=== PATIENT | female | born 1985 | race Caucasian/White ===

== ENCOUNTER 2021-06-08 16:05 | Outpatient (REF) | payer OTHER, MEDICAID, SELFPAY ==
[2021-06-10 10:15] LABS: HIV-1/2 Ag & Ab Screen Negative (Negative)
[2021-06-10 10:34] LABS: Hepatitis C Ab w Rflx HCV PCR Negative (Negative)
[2021-06-10 14:05] LABS: Chlamydia Result Negative (Negative); GC Result Negative (Negative)
== END 2021-06-08 16:06 | disposition home or self-care (01) ==
LOC: NCHCN 16:05
PROVIDERS: PCP Nurse Practitioner Family; Visit Provider Nurse Practitioner Family
DX: Z20.2 Contact with and (suspected) exposure to infections with a predominantly sexual mode of transmission (principal)
CPT/HCPCS: 86803; 87389; 87491; 87591; 87070; 87480; 87510; 87660

== ENCOUNTER 2022-01-06 10:13 | Day surgery (SDC) | payer BC, SELFPAY ==
[2022-01-06] VITALS (10 sets, daily range): BP systolic 101–132; BP diastolic 49–77; PULSE 62–91; RESP 12–20; TEMP 36.1–37; O2SAT 98–100; BMI 27.4
[2022-01-06 10:40] LABS: Bilirubin Negative (Negative); Blood Negative (Negative); Clarity Clear (Clear); Glucose Negative (Negative); Ketones Negative (Negative); Leukocyte Esterase Trace (Negative); Nitrite Negative (Negative); Specific Gravity 1.025 (1.005-1.025); Urobilinogen 0.2 EU/dL (Up TO 0.2)
--- NOTE | 2022-01-06 10:45 | DI.US_ITS ---
Exam(s) US OB TRANSVAGINAL EXAM: US OB TRANSVAGINAL CLINICAL HISTORY: concern for ruptured ectopic . TECHNIQUE: Transabdominal and transvaginal pelvic ultrasound was performed using standard protocol. COMPARISON: No exams were available for comparison FINDINGS: UTERUS: Position: Anteverted. Size: 6.7 long by 5.5 AP by 6.0 transverse cm Endometrium: 0.9 cm. Normal for patient's menstrual status. No intrauterine gestational sac is identi fied. Myometrium: Unremarkable. Cervix: Unremarkable. OVARIES: The left ovary is not definitively seen. What appears to be the right ovary measures 1.6 x 2.5 cm. No soft tissue mass is seen in the right adnexa. There is fluid seen in the right adnexa. IMPRESSION: 1. Normal-appearing uterus with endometrial stripe within normal limits. No evidence of an intrauter ine gestation. 2. The ovaries were not definitively seen. There is fluid seen in the right adnexa. The possibility of an ectopic cannot be excluded. Please correlate with the patient's beta HCG levels. DATA REPOSITORY:
[2022-01-06 10:46] LABS: Bacteria Few HPF (Negative); C & S Indicated? Yes; Casts Negative LPF (Negative); Crystals Negative HPF (Negative); Epithelial Cells Few HPF (Negative); Mucus Negative (Negative); RBC Negative HPF (0-2)
[2022-01-06] MEDS: MORPHine 4 MG/ML SYR 2 MG IVP (11:06)
--- NOTE | 2022-01-06 11:07 | W.ED.GENAD ---
Discharge Plan Disposition Patient Disposition: [facility] INPATIENT Condition: Serious Discharge Details Chief Complaint: Abd Prob Clinical Impression: Ruptured ectopic Primary Care Provider: Jose Sim ED Provider: Lucien Breaux Medical Decision Making 36-year-old female presents with acute onset abdominal pain this morning, endorses abdominal cramping diffuse in nature, denies vaginal bleeding urinary symptoms, found to have a positive test, did not know she was last menstrual period was 5 weeks ago, has a new sexual partner, 1 prior gestation has a 17-year-old child, no chest pain shortness of breath or presyncope no nausea or vomiting. Patient is hemodynamically stable, bedside ultrasound with a positive fast, free fluid in the pelvis, evidence of gestational sac and yolk sac outside of uterus concerning for ruptured ectopic . Stat consultation called to SENIOR [employer] COORDINATOR Dr. Cohen who is now at the bedside, stat pelvic ultrasound confirming ruptured ectopic , Dr. Cohen will be taking patient to the OR, labs including type and screen, coags have been sent, analgesia antiemetics, fluids. HPI General Date/Time Provider Initiated Documentation: 01/06/22 10:26. HPI Narrative: 36-year-old female G2, P1, last menstrual period 5 weeks ago, presents with acute onset abdominal discomfort that began approximately an hour before ED arrival. Denies nausea vomiting diarrhea or urinary symptoms. Has a new sexual partner over the past couple of months, denies history of STIs. Denies chest pain shortness of breath or presyncope General Stated Complaint: Abd Prob ADRIEN: 3 Review of Systems Narrative: Review of Systems Constitutional: negative Eyes: negative ENT: negative Cardiovascular: negative Respiratory: negative Gastrointestinal: Abdominal pain : negative Musculoskeletal: negative Skin: negative Neurologic: negative Psych: negative PFSH All Active Problems (Updated 01/06/22 @ 11:12 by Lucien Breaux MD) Ruptured ectopic (Acute) Social History Smoking risk assessment performed?: No Exam Narrative Exam Narrative: Physical Examination General: alert, awake, cooperative, moderately uncomfortable HEENT: normocephalic, atraumatic; PERRL, EOM intact, conjunctiva normal; no nasal discharge; moist mucous membranes, oral and pharyngeal mucosa normal, tolerating secretions Neck: supple, trachea midline; full ROM Chest: normal to inspection Respiratory: normal respiratory effort, speaking in full sentences, clear to auscultation, no wheezing, rales or rhonchi Cardiac: regular rate, regular rhythm, S1S2 intact, no murmurs rubs or gallops GI: abdomen soft, diffuse abdominal tenderness, non-distended; no palpable mass or hepatosplenomegaly Skin: no lesions, rashes or trauma appreciated; warm well perfused extremities Neuro: AAOx3, normal speech, moving all extremities Psych: Appropriate mood and affect Course Vital Signs Vital signs: Vital Signs Temperature 36.6 C 01/06/22 10:17 Pulse 80 01/06/22 10:17 Respiratory Rate 20 01/06/22 10:17 Blood Pressure 132/77 01/06/22 10:17 Pulse Oximetry 98 01/06/22 10:17 Temperature 36.6 C 01/06/22 10:17 Temperature Source Temporal Artery Scan 01/06/22 10:17 Pulse 80 01/06/22 10:17 Respiratory Rate 20 01/06/22 10:17 Blood Pressure 132/77 01/06/22 10:17 Blood Pressure Position Standing 01/06/22 10:17 Pulse Oximetry 98 01/06/22 10:17 Oxygen Delivery Method Room Air 01/06/22 10:17 Oxygen Flow Rate 0 01/06/22 10:17 Lab/Test Results Lab/Test Results: 01/06/22 10:24 Urine - Reflex from Ua Urine Culture - Pending Laboratory Tests Range/Units 01/06/22 10:24 Urine Color (Yellow) Yellow Urine Clarity (Clear) Clear Urine pH (5-8) 7.0 Ur Specific [place] (1.005-1.025) 1.025 Urine Protein (Negative) mg/dL Negative Urine Ketones (Negative) mg/dL Negative Urine Blood (Negative) Negative Urine Nitrite (Negative) Negative Urine Bilirubin (Negative) Negative Urine Urobilinogen (Up TO 0.2) EU/dL 0.2 Ur Leukocyte Esterase (Negative) Trace H Urine RBC (0-2) HPF Negative Urine WBC (0-5) HPF 5-10 Ur Epithelial Cells (Negative) HPF Few Urine Crystals (Negative) HPF Negative Urine Bacteria (Negative) HPF Few Urine Casts (Negative) LPF Negative Urine Mucus (Negative) Negative Ur Culture Indicated? Yes Urine Glucose (Negative) mg/dL Negative POC- Test(urine) Positive
[2022-01-06] MEDS: Normal Saline 1,000 ML 1000 ML IV (11:08)
--- NOTE | 2022-01-06 11:08 | W.ANESPRE ---
General Info Date of Service Date Performed: 01/06/22 Height: 5 ft 4 in Weight: 72.575 kg Body Mass Index (BMI): 27.4 Surgical Procedure: Operation Date: 01/06/22 11:25 Proposed Procedure Side Surgeon p Etopic Rupture Nathalia Cohen DO Meds Allergies and Home Medications Allergies Allergy/AdvReac Type Severity Reaction Status Date / Time No Known Allergies Allergy Unverified 01/06/22 11:24 Current Visit Medications: Current Medications Generic Name Dose Route Start Last Admin Trade Name Freq PRN Reason Stop Dose Admin Sodium Chloride 1,000 mls @ 1,000 mls/hr 01/06/22 10:50 Saline 1000ml Bag IV 01/06/22 11:49 BOLUS ONE PFSH Prental History History 2 Para 1 Hx # Term Pregnancies Multiple births Hx # Pregnancies Ectopic pregnancies AB induced Hx Number of Living Children 1 AB spontaneous Vital Signs and Lab Results Vital Signs Most Recent Vital Signs in EMR: Most Recent Vital Signs Temp Pulse Resp BP Pulse Ox 36.6 C 80 20 132/77 98 01/06/22 10:17 01/06/22 10:17 01/06/22 10:17 01/06/22 10:17 01/06/22 10:17 Point of Care Results Point of Care Results: POC- Test(urine) Positive 01/06/22 10:30 Lab Results Result Diagrams: 01/06/22 10:50 01/06/22 10:50 Blood Type / Crossmatch: Patient ABO/Rh A Negative 01/06/22 Complete Blood Count: White Blood Count 10.27 10^3/uL (4.4-10.8) 01/06/22 10:50 Red Blood Count 3.90 10^6/uL (3.93-5.22) L 01/06/22 10:50 Hemoglobin 11.6 g/dL (11.2-15.7) 01/06/22 10:50 Hematocrit 33.9 % (36.0-46.0) L 01/06/22 10:50 Platelet Count 275 10^3/uL (130-400) 01/06/22 10:50 Complete Metabolic Panel: Estimated GFR/1.73 m2 Pending 01/06/22 10:50 Liver Function Panel: No Data to Display Coagulation Panel: INR International Normalized Ratio 1.0 (0.9-1.1) 01/06/22 10:50 Prothrombin Time 9.8 sec (9.3-11.0) 01/06/22 10:50 Activated Partial Thromboplast Time 26.0 sec (21.0-27.5) 01/06/22 10:50 Cardiac Panel: No Data to Display Arterial Blood Gas: No Data to Display Venous Blood Gas: No Data to Display Pancreas Panel: No Data to Display Thyroid Panel: No Data to Display Infectious Disease: Coronavirus (COVID-19)(PCR) Pending 01/06/22 11:12 Coronavirus 2019 Source Nasal/Nares 01/06/22 11:12 Blood Cultures: No Data to Display Toxicology Panel: No Data to Display Panel: No Data to Display Anesthesia Assessment and Plan Anesthesia History Personal History: No History of Anesthesia Complications Family History: No Family History of Anesthesia Complications Exercise Tolerance Exercise Tolerance: Metabolic Equivalents>4 Pertinent Negatives Pertinent Negatives: No Symptoms of GERD, No Major Cardiovascular Symptoms or Complaints, No Major Pulmonary Symptoms or Complaints and No History of CVA/TIA Cardiac & Pulmonary Exam Cardiac Exam: Normal S1/S2 Heart Sounds Pulmonary Exam: Clear Bilateral Breath Sounds Implantable Cardiac Device Does patient have a Pacemaker or an ICD?: No Airway Exam Known Difficult Airway: No Mallampati Class: 2 Mouth Opening: Normal (> 3cm) Thyromental Distance: Greater than 3 cm Neck Range of Motion: Full ROM Neck Circumference: Normal Teeth Condition: Normal Dentition and Loose or Chipped (reports some chipped) ASA Classification ASA Score: ASA 2 Emergency Case?: Yes NPO Status NPO Status: Full Stomach Status Status: Confirmed Anesthesia Plan Resuscitation Status: Full Code Anesthesia Technique: General Anesthesia Airway Planned: Endotracheal Tube Monitors Used: Standard Monitors
[2022-01-06] MEDS: Ondansetron 4 MG/2 ML VIAL IVP (11:10)
[2022-01-06 11:11] LABS: Abs Immature Grans 0.04 10^3/uL (0.0-0.06); Absolute Basophil Count 0.05 10^3/uL (0.0-0.2); Absolute Eosinophil Count 0.19 10^3/uL (0.0-0.7); Absolute Lymphocyte Count 2.67 10^3/uL (1.2-3.4); Absolute Monocyte Count 0.68 10^3/uL (0.1-0.8); Absolute Neutrophil Count 6.64 10^3/uL (1.2-6.7); Basophils % 0.5; Eosinophils % 1.9; HCT 33.9 % (36.0-46.0); HGB 11.6 g/dL (11.2-15.7); Immature Grans % 0.4; MCH 29.7 pg (27.0-33.0); MCHC 34.2 % (32.0-36.0); MCV 87 fL (80-95); MPV 9.6 fL (8.0-11.0); Monocytes % 6.6; Neutrophils % 64.6; Platelet Count 275 10^3/uL (130-400); RDW 12.6 % (11.7-14.6); RDW-SD 39.8 fL; WBC 10.27 10^3/uL (4.4-10.8)
[2022-01-06 11:16] LABS: Source Nasal/Nares
--- NOTE | 2022-01-06 11:22 | HPE_ITS ---
Date of service: 01/06/22 Time of Service: : Assessment and Plan Assessment and plan (1) Ruptured ectopic : Status: Acute Assessment and plan: Highly suspicious for ruptured ectopic . Patient was taken emergently to the operating room for operative laparoscopy, removal of ectopic , correction of hemoperitoneum, bilateral salpingectomy. Patient does understand that she may need conversion to an open laparotomy and does also understand the risk, benefits, alternatives of surgery which include infection, bleeding, injury to surrounding organs, risk of anesthesia, risk of thromboembolism, possible risk of . She does not need antibiotic prophylaxis. She will have pneumatic compression stockings for DVT protection. My anticipation would be for discharge home post surgical procedure. All questions were answered. History of Present Illness History of Present Illness Chief Complaint: Acute onset of lower abdominal pain Narrative: Patient is a 36-year-old 2 para 1-0-0-1 who presented to the emergency department today with acute onset of abdominal pain which is colicky in nature. This started approximately 10 AM. She is 6 from her last menstrual period. She is currently sexually active without use of contraception. Her last was 17 years ago. She was convinced of the fact that she was no longer able to achieve . She is on desirous of . Bedside ultrasound performed in the emergency department showed free fluid in the abdomen with no intrauterine gestation. This was confirmed on transvaginal pelvic ultrasound in diagnostic imaging with no intrauterine and a moderate amount of free fluid in the abdomen and pelvis. This is highly suspicious for ruptured ectopic . Patient has no desire to continue her fertility and request permanent sterilization at the time of procedure. We discussed treatment options for which medical therapy would not be indicated due to the pain and free fluid within her abdomen. Surgical exploration were explained to the clarisa ent which would be an operative laparoscopy, removal of ectopic , correction of hemoperitoneum, bilateral salpingectomy, possible oophorectomy, possible laparotomy. Full informed consent was obtained. Review of Systems Narrative: Patient had acute onset of lower abdominal pelvic pain no nausea or vomiting. Constitutional Constitutional: Reports as per HPI Eyes Eyes: Reports system reviewed and no additional complaints, except as documented ENT Ears, Nose, Mouth, and Throat: Reports system reviewed and no additional complaints, except as documented Cardiovascular Cardiovascular: Denies chest pain, Denies irregular heart rhythm and Denies dyspnea Respiratory Respiratory: Reports system reviewed and no additional complaints, except as documented, Denies cough and Denies dyspnea Gastrointestinal Gastrointestinal: Reports abdominal pain, Reports bloating, Denies constipation, Denies diarrhea and Denies nausea Genitourinary Genitourinary: Reports as per HPI, Reports amenorrhea and Denies sexual dysfunction Musculoskeletal Musculoskeletal: Reports system reviewed and no additional complaints, except as documented Neurologic Neurologic: Reports system reviewed and no additional complaints, except as documented PFSH All Active Problems (Updated 01/06/22 @ 11:24 by Nathalia Cohen DO) Asthma (Chronic) Mild in childhood Ruptured ectopic (Acute) Social History (Updated 01/06/22 @ 11:25 by Nathalia Cohen DO) Smoking/Tobacco Use Status: Current every day Tobacco Type: cigarettes Smoking risk assessment performed?: Yes Alcohol Intake: former Drug use: Never Substance use type: does not use Number of Children: 1 Do you feel safe at home: Yes Do you feel safe in your relationship?: Yes Female Reproductive History Menstrual Age of Menarche: 13 Duration of menses: 3-5 days Date of last menstrual period: 11/21/21 control method: none History History 2 Para 1 Hx # Term Pregnancies Multiple births Hx # Pregnancies Ectopic pregnancies AB induced Hx Number of Living Children 1 AB spontaneous Meds Allergies and Home Medications Allergies Allergy/AdvReac Type Severity Reaction Status Date / Time No Known Allergies Allergy Unverified 01/06/22 11:24 Exam Narrative Exam Narrative: Seen and examined, vital signs reviewed which are stable. Moderate pain and discomfort due to pelvic pain. Patient was seen while in diagnostic imaging for ultrasound confirming free fluid within the abdomen, no intrauterine . Const General: cooperative, uncomfortable, acute distress, not ill appearing and does not appear intoxicated Nutritional Appearance: average body habitus [facility] Head: normal to inspection Eyes General: appearance normal, both eyes and all related structures Neck Neck: normal visual inspection, supple and no anterior neck swelling Resp Effort & Inspection: normal respiratory effort, no cough, no grunting and no stridor Auscultation: clear to auscultation bilaterally, no rales, no rhonchi and no wheezes Cardio Rate: regular rate Rhythm: regular rhythm Heart Sounds: S1 normal, S2 normal and no murmurs GI Inspection: normal to inspection and non-distended Palpation: soft, guarding, no masses, not rigid and tender Extrem General: no clubbing, cyanosis or edema Results Imaging Imaging Studies: Transvaginal pelvic ultrasound reviewed while in progress with moderate amount of free fluid in the abdomen and pelvis and no intrauterine gestation noted. Labs Result diagrams: 01/06/22 10:50 01/06/22 10:50 Labs: Laboratory Results - last 24 hr 01/06/22 01/06/22 01/06/22 10:24 10:50 11:12 WBC 10.27 RBC 3.90 L Hgb 11.6 Hct 33.9 L MCV 87 MCH 29.7 MCHC 34.2 RDW 12.6 Plt Count 275 MPV 9.6 Immature Gran % 0.4 Neutrophils % 64.6 Lymphocytes % 26.0 Monocytes % 6.6 Eosinophils % 1.9 Basophils % 0.5 Nucleated RBC % 0.0 Absolute Neutrophils 6.64 Absolute Lymphocytes 2.67 Absolute Monocytes 0.68 Absolute Eosinophils 0.19 Absolute Basophils 0.05 Urine Color Yellow Urine Clarity Clear Urine pH 7.0 Ur Specific [place] 1.025 Urine Protein Negative Urine Ketones Negative Urine Blood Negative Urine Nitrite Negative Urine Bilirubin Negative Urine Urobilinogen 0.2 Ur Leukocyte Esterase Trace H Urine RBC Negative Urine WBC 5-10 Ur Epithelial Cells Few Urine Crystals Negative Urine Bacteria Few Urine Casts Negative Urine Mucus Negative Ur Culture Indicated? Yes Urine Glucose Negative COVID-19 Source Nasal/Nares Last Vital Signs Temp 98.6 F 01/06/22 11:10 Pulse 65 01/06/22 11:10 Resp 17 01/06/22 11:10 BP 105/67 01/06/22 11:10 Pulse Ox 100 01/06/22 11:10
[2022-01-06 11:27] LABS: Prothrombin Time 9.8 sec (9.3-11.0)
--- NOTE | 2022-01-06 11:30 | NUR.NOTE ---
Nursing Note: Patient brought to ED bed and was seen by ED doc immediately who did bedside US. IV placed, labs sent, covid sent, obgyn at bedside to consent patient for procedure. Pt escorted to PACU at approx 1120, patient stable and vitals as charted.Report given to BREAD ROOM HAND. Patient's contact (a co-worker who brought her) is Anthony Sherman [phone].
[2022-01-06 11:45] LABS: AST 8 U/L (15-37); Albumin 3.6 g/dL (3.4-5.0); Alkaline Phosphatase 62 U/L (46-116); Anion Gap 11.3 mmol/L (3-11); BUN 10 mg/dL (7-18); Bilirubin, Total 0.1 mg/dL (0.2-1.0); CO2 20.7 mmol/L (21.0-32.0); CREATININE 0.7 mg/dL (0.55-1.02); Calcium 8.5 mg/dL (8.5-10.1); Chloride 104 mmol/L (98-107); Glucose 102 mg/dL (74-106); Potassium 3.9 mmol/L (3.5-5.1); Sodium 136 mmol/L (136-145); Total Protein 6.8 g/dL (6.4-8.2)
[2022-01-06 11:52] LABS: ALT < 6 U/L (14-59)
[2022-01-06 12:09] LABS: COVID-19 PCR Negative (Negative)
--- NOTE | 2022-01-06 12:15 | FALL_PTH ---
PATIENT: Shelby Carrasco LOC: [facility] U#:[id number] AGE/SX: 36/F ROOM: RE01/06/[address]: Clarice Miller DO : 1985 BED: DIS: 01/06/2022 SPEC #: [id number] RECD: 01/06/22 17:31 STATUS: ALEC REKenny #: [id number] ROSA: 01/06/22 12:[address]: Clarice Miller DEPT: Surgical Specimen RECD BY: Nurys Kenny ENTERED: 01/06/22 17:32 SP TYPE: Fall OTHR DR: Jose Sim Tissues: 1 - FALLOPIAN TUBE (ECTOPIC) 2 - FALLOPIAN TUBE (ECTOPIC) Procedures: GROSS AND MICRO LEVEL 4 GROSS AND MICRO LEVEL 3 Comments: [id number]
[2022-01-06] MEDS: Lactated Ringers 1,000 ML 30 ML IV (12:19)
[2022-01-06] MEDS: HYDROmorphone 2 MG/ML VIAL IVP (13:09)
--- NOTE | 2022-01-06 13:22 | ROE_ITS ---
Date of service: 01/06/22 Time of Service: 13:22 Operative Note Operative Note DATE OF PROCEDURE: 01/06/22 PRE-OP DIAGNOSIS: Suspected ruptured ectopic POST-OP DIAGNOSIS: same (Left ectopic with dilated fallopian tube. Clubbed right fallopian tube) PROCEDURE: Operative laparoscopy with removal of bilateral fallopian tubes for ectopic SURGEON: Nathalia Cohen ASSISTING SURGEON: Eugenio Priest ANESTHESIA TYPE: General LMA/ETT Refer to Anesthesia Record ESTIMATED BLOOD LOSS: 100 PATHOLOGY: other (1. Right fallopian tube with clubbed distal end 2. Left fallopian tube with suspected ectopic) COMPLICATIONS: None Patient was transported to: PACU Patient's condition: stable Indications: Suspected ruptured ectopic Findings: Markedly dilated left fallopian tube with distal bleeding. Clubbed right fallopian tube. Small, 2 cm anterior fundal subserosal fibroid. Moderate hemoperitoneum Procedure Description: Patient is a 36-year-old female 2 para 1 with cute onset of abdominal p ain and unknown status. She was noted to have a positive test in the emergency department and severe lower quadrant and pelvic pain. Pain started approximately 10 AM. She presented to the hospital shortly thereafter. Bedside ultrasound had been performed showing free fluid in the pelvis and no intrauterine gestation. This was confirmed on ultrasound in diagnostic imaging. Laboratory studies have been drawn but pending at that point. Clinically on examination, patient had an acute abdomen that was hemodynamically stable. Risk benefits and alternatives of surgical intervention had been explained to the patient in full informed consent was obtained. Patient's last was 17 years ago and she was under the impression that she would not be able to conceive a . She has no desire for future fertility. She also requested permanent sterilization. Risk benefits and alternatives of this were explained to the patient and full informed consent was obtained. She was taken the operating suite with an IV running where she was placed in the dorsal supine position. Endotracheal intubation was performed for the administration of general anesthesia with ease. At this place he was placed in the modified dorsolithotomy position in yellowfin stirrups and prepped and draped in the usual sterile fashion. Exam under anesthesia revealed a uterus that is midline and mobile and fullness in the left adnexa. Ramsey catheter was inserted for continuous bladder drainage. Pneumatic compression stockings were placed for thromboembolism protection. No antibiotics were warranted. Speculum was inserted into the vaginal vault and a Hulka uterine manipulator was placed for uterine elevation. Ramsey catheter was inserted for continuous bladder drainage. At this point attention was turned to the abdomen where after infiltration with quarter percent Marcaine and infraumbilical skin incision was made. The anterior abdominal wall was elevated and a varies needle inserted directly. CO2 gas was used to a maximum pressure of 15 mmHg to create a pneumoperitoneum without difficulty. Once pneumoperitoneum was created direct insertion of a 12 mm bladeless Optiview sleeve and trocar were placed into the abdomen. There was noted to be a moderate amount of blood within the abdomen and pelvis. A second and third right and left lower quadrant trocar site was placed after infiltration of quarter percent Marcaine and under direct visualization. The uterus was then elevated and both fallopian tubes inspected. Left fallopian tube was markedly dilated at the distal end with blood dripping from the fallopian tube and. This is the area of suspected ectopic. Right fallopian tube, however was also markedly abnormal with a clubbed end and filmy adhesions of the fallopian tube to the left ovarian fossa. Attention was initially turned to the left fallopian tube which was elevated and cautery transected. Similar procedure was carried out on the right fallopian tube with a blunted distal end. During the procedure the dilated fallopian tube was inadvertently incised, and at that point a small amount of hemosiderin laden fluid returned. Upon removal of both fallopian tubes, Endopouch was placed into the 10 mm sleeve and with a 5 mm camera first the right fallopian tube was removed from the abdomen followed by the left fallopian tube. At this point pressure was diminished to 5 mmHg and both pedicles from each fallopian tube were found to be hemostatic. The abdomen was irrigated copious amounts of normal saline to remove the hemoperitoneum. Again pedicle beds were inspected and found to be hemostatic. At this point procedure was terminated. CO2 gas was discontinued pneumoperitoneum released and all instruments removed from the abdomen. Fascial incision was closed using 0 Vicryl suture in a simple interrupted fashion. Skin edges were reapproximated with 4-0 Monocryl suture and Steri-Strips and sterile dressings were placed. Hulka uterine manipulator was removed as was her Ramsey catheter. Patient was returned to the dorsal supine position and awoke from anesthesia with ease. She was taken recovery in stable condition EBL: 100 mL Findings: Suspected left fallopian tube ectopic. Clubbed, abnormal right fallopian tube. 2 cm fundal, subserosal fibroid. Complications: None apparent Pathology: 1. Right fallopian tube 2. Left Fallopian tube with suspected . Fluids: crystalloid per anesthesia
--- NOTE | 2022-01-06 14:18 | W.ANESPOSTOP ---
Postoperative Evaluation Date, Time and Location Date Performed: 01/06/22 Time Performed: 14:18 Patient Location: Day Surgery Unit Vital Signs Most Recent Imported Vital Signs: Most Recent Vital Signs Temp Pulse Resp BP Pulse Ox 36.1 C L 62 16 109/65 99 01/06/22 13:48 01/06/22 13:48 01/06/22 13:48 01/06/22 13:48 01/06/22 13:48 Pain Score Most Recent Pain Score: Most Recent Pain Score Pain Level 6 01/06/22 13:48 Assessment Mental Status: Awake (Alert & Oriented to Patient Baseline) Airway and Respiratory Function: Patent airway with normal (patient baseline) respiratory exam Cardiovascular Function: Hemodynamically Stable Hydration Status: Adequately Hydrated Nausea & Vomiting: No Nausea or Vomiting Pain: Pain is tolerable per patient Peripheral Nerve Block: Patient did not receive a nerve block
[2022-01-06] MEDS: Acetaminophen 500 MG TAB 1000 MG PO (15:00)
== END 2022-01-06 15:17 | disposition home or self-care (01) ==
LOC: ER 11:12 → SUR 11:13
PROVIDERS: Obstetrics & Gynecology; Emergency Provider Emergency Medicine; PCP Internal Medicine; Visit Provider Surgery
PROC: (CPT 58661; principal; 2022-01-06 11:15)
DX: O00.90 Unspecified ectopic pregnancy without intrauterine pregnancy; O00.102 Left tubal pregnancy without intrauterine pregnancy; O08.1 Delayed or excessive hemorrhage following ectopic and molar pregnancy; Z20.822 Contact with and (suspected) exposure to COVID-19; N83.8 Other noninflammatory disorders of ovary, fallopian tube and broad ligament; D25.2 Subserosal leiomyoma of uterus
CPT/HCPCS: 59151; 80053; 86850; 86900; 86901; 87635; 88305; 76817; 81003; 81015; 85025; 85610; 85730; 87086; 88304; J1100; J2250; J2270; J2370; J2405

== ENCOUNTER 2022-01-12 15:02 | Emergency (ER) | payer BC, SELFPAY ==
[2022-01-12 15:12] VITALS: BP 125/62; PULSE 72; RESP 18; TEMP 36.7; O2SAT 99
--- NOTE | 2022-01-12 15:30 | DI.US_ITS ---
Exam(s) US TRANSVAGINAL EXAM: US TRANSVAGINAL CLINICAL HISTORY: ectopic with surgery roni, now with increased pa TECHNIQUE: Ultrasound of the pelvis was performed using transvaginal technique. COMPARISON: US US OB TRANSVAGINAL from 01/06/2022 FINDINGS: UTERUS: No evidence of intrauterine gestation. Measures 6 cm length x 6 cm AP x 4.5 cm wide. Finding in the uterine fundus measuring 1.6 x 2.3 x 2.7 cm which is possibly a fibroid. Endometrial thickness measures 4.5 mm. There is no fluid in the endometrial canal. CERVIX: There are no obvious nabothian cysts. RIGHT OVARY: Measures 2.3 x 2.1 x 1.2 cm No significant cysts nor masses evident in the right ovary. LEFT OVARY: Not able to be identified CUL-DE-SAC: No free fluid evident. IMPRESSION: 1. Possible subtle fundus level fibroid is described above. No evidence of intrauterine gestation no r fluid within the endometrial cavity. 2. No abnormal adnexal masses seen. The left ovary was not able to be located on this study. 3. No free fluid evident in the adnexal regions and cul-de-sac. DATA REPOSITORY:
--- NOTE | 2022-01-12 16:26 | W.ED.GENAD ---
Discharge Plan Disposition Patient Disposition: HOME Condition: Stable Discharge Details Clinical Impression: Vaginal bleeding, Postoperative state Primary Care Provider: Jose Sim ED Provider: Nurys Grimm Home Meds and New Rx's Prescriptions: Continued ibuprofen 800 mg tablet 800 mg PO Q8H PRNQty: 60 1RF oxycodone-acetaminophen [Percocet] 5-325 mg tablet 1 tab PO Q8H PRNQty: 10 0RF docusate sodium [Colace] 100 mg capsule 100 mg PO BID Qty: 20 0RF Discharge Instructions Additional Instructions: Keep yourself hydrated Take Tylenol as needed for pain Return earlier if you are bleeding through more than 1 super tampon an hour for more than several hours, fever, chills or if your pain worsens Please follow-up with OB at your scheduled appointment Your urine is being sent for urinalysis, and we will call you if it is abnormal Referrals: Jose Sim [Primary Care Provider] - Medical Decision Making Ultrasound does not show acute abnormality Hemodynamically stable CBC and CMP compared to prior and reviewed with Dr. Cohen, [facility] [employer] Bleeding has slowed, patient is hemodynamically stable, afebrile, nontoxic, feels symptomatically improved after Tylenol and fluids Will follow up with [employer] and return earlier should she have new or worsening complaints Of note she is a negative for blood tightness, I did discuss this with Dr. Cohen and she declines need for RhoGAM at this time No clinical exam findings consistent with endometritis or pelvic inflammatory disease Medical Records Medical records reviewed: Yes I reviewed the patient's medical records. Lab Data Lab results reviewed: Yes I reviewed the patient's lab results. ECG Data Prior ECG tracings: available for review HPI General Date/Time Provider Initiated Documentation: 01/12/22 15:07. HPI Narrative: This 36-year-old female presents status post ectopic status post surgical intervention on January 06. She was discharged home and was having normal menstrual flow when at 1:00 today she had some increased bleeding. She is gone through approximately 1 regular tampon an hour. She denies any weakness or dizziness. She denies any worsening pain. She has had persistent cramping. She denies fever or chills. Related Data Home Medications Medication Instructions Recorded Confirmed docusate sodium 100 mg capsule 100 mg PO BID #20 caps 01/06/22 01/12/22 (Colace) ibuprofen 800 mg tablet 800 mg PO Q8H PRN #60 tabs 01/06/22 01/12/22 oxycodone-acetaminophen 5 mg-325 1 tab PO Q8H PRN #10 tabs 01/06/22 01/12/22 mg tablet (Percocet) Previous Rx's Medication Instructions Recorded docusate sodium 100 mg capsule 100 mg PO BID #20 caps 01/06/22 (Colace) ibuprofen 800 mg tablet 800 mg PO Q8H PRN #60 tabs 01/06/22 oxycodone-acetaminophen 5 mg-325 1 tab PO Q8H PRN #10 tabs 01/06/22 mg tablet (Percocet) Allergies Allergy/AdvReac Type Severity Reaction Status Date / Time No Known Allergies Allergy Unverified 01/12/22 15:15 General Stated Complaint: [employer] ADRIEN: 3 Review of Systems All systems reviewed & are unremarkable except as noted in HPI and below PFSH All Active Problems (Updated 01/12/22 @ 17:59 by MEG Madden) Vaginal bleeding (Acute) Postoperative state (Acute) Bilateral salpingectomy for suspected left ectopic and clamped right fallopian tube 01/06/2022 Asthma (Chronic) Mild in childhood Ruptured ectopic (Acute) Social History (Updated 01/06/22 @ 11:25 by Nathalia Cohen DO) Smoking/Tobacco Use Status: Current every day Tobacco Type: cigarettes Smoking risk assessment performed?: Yes Alcohol Intake: former Drug use: Never Substance use type: does not use Number of Children: 1 Do you feel safe at home: Yes Do you feel safe in your relationship?: Yes Female Reproductive History Menstrual Age of Menarche: 13 Duration of menses: 3-5 days control method: none History History 2 Para 1 Hx # Term Pregnancies Multiple births Hx # Pregnancies Ectopic pregnancies AB induced Hx Number of Living Children 1 AB spontaneous Exam Const General: cooperative, comfortable and no acute distress Chest Chest: normal inspection of the chest Resp Effort & Inspection: normal respiratory effort Auscultation: clear to auscultation bilaterally Cardio Rate: regular rate Rhythm: regular rhythm GI Other: Well-healing postoperative site, ecchymosis consistent with laparoscopic surgery Mild diffuse tenderness without rebound or guarding, no distention Other: Small amount of blood noted in vaginal vault, no clots noted Neuro General: patient alert and patient oriented x3 Course Vital Signs Vital signs: Vital Signs Temperature 36.7 C 01/12/22 15:12 Pulse 72 01/12/22 15:12 Respiratory Rate 18 01/12/22 15:12 Blood Pressure 125/62 01/12/22 15:12 Pulse Oximetry 99 01/12/22 15:12 Temperature 36.7 C 01/12/22 15:12 Temperature Source Temporal Artery Scan 01/12/22 15:12 Pulse 72 01/12/22 15:12 Respiratory Rate 18 01/12/22 15:12 Respiratory Effort Non-Labored 01/12/22 15:17 Blood Pressure 125/62 01/12/22 15:12 Blood Pressure Position Sitting 01/12/22 15:12 Pulse Oximetry 99 01/12/22 15:12 Oxygen Delivery Method Room Air 01/12/22 15:12 Oxygen Flow Rate 0 01/12/22 15:12
[2022-01-12 16:45] LABS: Abs Immature Grans 0.03 10^3/uL (0.0-0.06); Absolute Basophil Count 0.06 10^3/uL (0.0-0.2); Absolute Eosinophil Count 0.34 10^3/uL (0.0-0.7); Absolute Lymphocyte Count 2.91 10^3/uL (1.2-3.4); Absolute Monocyte Count 0.62 10^3/uL (0.1-0.8); Basophils % 0.5; Eosinophils % 3.1; HCT 30.5 % (36.0-46.0); HGB 10.3 g/dL (11.2-15.7); Immature Grans % 0.3; Lymphocytes % 26.2; MCH 29.7 pg (27.0-33.0); MCHC 33.8 % (32.0-36.0); MCV 88 fL (80-95); MPV 9.3 fL (8.0-11.0); Monocytes % 5.6; Neutrophils % 64.3; Platelet Count 286 10^3/uL (130-400); RBC 3.47 10^6/uL (3.93-5.22); RDW 12.6 % (11.7-14.6); RDW-SD 40.5 fL; WBC 11.11 10^3/uL (4.4-10.8)
[2022-01-12 16:47] LABS: Absolute Neutrophil Count 7.14 10^3/uL (1.2-6.7)
[2022-01-12] MEDS: Lactated Ringers 1,000 ML 1000 ML IV (16:55)
[2022-01-12 17:02] LABS: ALT 13 U/L (14-59); AST 11 U/L (15-37); Albumin 3.5 g/dL (3.4-5.0); Alkaline Phosphatase 61 U/L (46-116); Anion Gap 9.3 mmol/L (3-11); BUN 8 mg/dL (7-18); Bilirubin, Total 0.1 mg/dL (0.2-1.0); CO2 24.7 mmol/L (21.0-32.0); CREATININE 0.9 mg/dL (0.55-1.02); Chloride 109 mmol/L (98-107); Glucose 94 mg/dL (74-106); Potassium 3.8 mmol/L (3.5-5.1); Sodium 143 mmol/L (136-145); Total Protein 6.5 g/dL (6.4-8.2)
[2022-01-12 18:06] VITALS: BP 125/70; PULSE 83; RESP 16; TEMP 36.5; O2SAT 99
[2022-01-12 18:08] LABS: Bilirubin Negative (Negative); Blood Trace-intact (Negative); Clarity Sl Cloudy (Clear); Glucose Negative (Negative); Ketones Negative (Negative); Leukocyte Esterase Small (Negative); Nitrite Negative (Negative); Specific Gravity 1.015 (1.005-1.025); Urobilinogen 0.2 EU/dL (Up TO 0.2)
[2022-01-12 18:14] LABS: Bacteria Few HPF (Negative); Crystals Negative HPF (Negative); Epithelial Cells Few HPF (Negative); RBC 0-2 HPF (0-2)
[2022-01-12 18:15] LABS: C & S Indicated? Yes; Casts Negative LPF (Negative); Mucus Negative (Negative)
== END 2022-01-12 18:10 | disposition home or self-care (01) ==
PROVIDERS: Emergency Provider Physician Assistant; PCP Internal Medicine
DX: N99.89 Other postprocedural complications and disorders of genitourinary system (principal); N93.9 Abnormal uterine and vaginal bleeding, unspecified
CPT/HCPCS: 36415; 80053; 86850; 86900; 86901; 96361; 96374; 99285; 76830; 81003; 81015; 85025; 87086; 99284; J0131

== ENCOUNTER 2022-02-28 18:31 | Outpatient (REF) | payer BC, SELFPAY ==
--- NOTE | 2022-02-28 12:00 | PAPFT_PTH ---
PATIENT: Shelby Carrasco LOC: [facility] U#:[id number] AGE/SX: 36/F ROOM: RE02/28/[address]: Barbara Bird : 1985 BED: DIS: 02/28/2022 SPEC #: [id number] RECD: 02/28/22 18:45 STATUS: ALEC REQ #: [id number] ROSA: 02/28/22 12:[address]: Barbara Bird DEPT: [facility] Cytology RECD BY: Nurys Kenny ENTERED: 02/28/22 18:45 SP TYPE: PAPFT OTHR DR: Jose Sim Tissues: 1 - CX/ENDOCX FOR PAP SMEARS Procedures: PAP THIN PREP/[facility] Screening HPV DNA PROBE Comments: [id number] (CHLAMYDIA/GC)
[2022-03-01 15:09] LABS: Chlamydia Result Negative (Negative); GC Result Negative (Negative)
== END 2022-02-28 18:32 | disposition home or self-care (01) ==
LOC: LBN 18:31
PROVIDERS: PCP Internal Medicine; Visit Provider Physician Assistant
DX: Z12.4 Encounter for screening for malignant neoplasm of cervix (principal); Z11.51 Encounter for screening for human papillomavirus (HPV); R87.610 Atypical squamous cells of undetermined significance on cytologic smear of cervix (ASC-US); Z01.419 Encounter for gynecological examination (general) (routine) without abnormal findings; R87.810 Cervical high risk human papillomavirus (HPV) DNA test positive
CPT/HCPCS: 87491; 87591; 88142; 87624

== ENCOUNTER 2022-10-03 20:06 | Outpatient (REF) | payer MEDICAID, SELFPAY ==
[2022-10-03 20:30] LABS: Abs Immature Grans 0.03 10^3/uL (0.0-0.06); Absolute Basophil Count 0.05 10^3/uL (0.0-0.2); Absolute Eosinophil Count 0.24 10^3/uL (0.0-0.7); Absolute Lymphocyte Count 2.11 10^3/uL (1.2-3.4); Absolute Monocyte Count 0.58 10^3/uL (0.1-0.8); Absolute Neutrophil Count 5.74 10^3/uL (1.2-6.7); Basophils % 0.6; Eosinophils % 2.7; HCT 32.3 % (36.0-46.0); HGB 10.6 g/dL (11.2-15.7); Immature Grans % 0.3; Lymphocytes % 24.1; MCH 29.2 pg (27.0-33.0); MCHC 32.8 % (32.0-36.0); MCV 89 fL (80-95); MPV 9.8 fL (8.0-11.0); Monocytes % 6.6; Neutrophils % 65.7; Platelet Count 310 10^3/uL (130-400); RBC 3.63 10^6/uL (3.93-5.22); RDW 12.8 % (11.7-14.6); RDW-SD 41.1 fL; WBC 8.75 10^3/uL (4.4-10.8)
[2022-10-03 21:03] LABS: Calculated LDL 144 mg/dL (<100); Cholesterol 211 mg/dL (<200); HDL Cholesterol 53 mg/dL (40-60); TSH (W/Ref FT4) 1.99 uIU/mL (0.36-3.74); Triglyceride 70 mg/dL (<150); Vitamin B12 527 pg/mL (193-986)
[2022-10-03 21:41] LABS: Vitamin D 25 Total 15.7 ng/mL (30-100)
== END 2022-10-03 20:07 | disposition home or self-care (01) ==
LOC: NCHCN 20:06
PROVIDERS: PCP Internal Medicine; Visit Provider Registered Nurse
DX: F34.0 Cyclothymic disorder (principal); D64.9 Anemia, unspecified; E55.9 Vitamin D deficiency, unspecified; E78.89 Other lipoprotein metabolism disorders; Z13.29 Encounter for screening for other suspected endocrine disorder; Z13.21 Encounter for screening for nutritional disorder
CPT/HCPCS: 80061; 82306; 82607; 84443; 85025

== ENCOUNTER 2023-04-05 16:48 | Outpatient (REF) | payer MEDICAID, SELFPAY ==
--- NOTE | 2023-04-05 15:10 | PAPFT_PTH ---
PATIENT: Shelby Carrasco LOC: [facility]#:[id number] AGE/SX: 37/F ROOM: RE04/05/[address]: Barbara Bird : 1985 BED: DIS: 04/05/2023 SPEC #: [id number] RECD: 04/06/23 11:45 STATUS: ALEC REKenny #: [id number] ROSA: 04/05/23 15:[address]: Barbara Bird DEPT: [facility] Cytology RECD BY: Nurys Kenny ENTERED: 04/06/23 11:46 SP TYPE: PAPFT OTHR DR: Jose Sim Tissues: 1 - CX/ENDOCX FOR PAP SMEARS Procedures: PAP THIN PREP/[facility] Screening HPV DNA PROBE Comments: [id number] (CHLAMYDIA/GC)
[2023-04-05 18:51] LABS: HCT 35.9 % (36.0-46.0); HGB 11.9 g/dL (11.2-15.7); MCH 28.4 pg (27.0-33.0); MCHC 33.1 % (32.0-36.0); MCV 86 fL (80-95); MPV 9.7 fL (8.0-11.0); Platelet Count 276 10^3/uL (130-400); RBC 4.19 10^6/uL (3.93-5.22); RDW 14.5 % (11.7-14.6); RDW-SD 45.2 fL; WBC 8.91 10^3/uL (4.4-10.8)
[2023-04-05 19:15] LABS: Iron 88 ug/dL (50-170); Total Iron Binding Capacity 352 ug/dL (250-450); Transferrin Sat 25 % (15-50)
[2023-04-05 19:21] LABS: ALT 20 U/L (14-59); AST 15 U/L (15-37); Albumin 3.5 g/dL (3.4-5.0); Alkaline Phosphatase 82 U/L (46-116); Anion Gap 6.4 mmol/L (3-11); BUN 14 mg/dL (7-18); Bilirubin, Total 0.2 mg/dL (0.2-1.0); CO2 26.6 mmol/L (21.0-32.0); Calcium 8.6 mg/dL (8.5-10.1); Chloride 106 mmol/L (98-107); Estimated GFR 74.88 (mL/min/1.73m2); Ferritin 27 ng/mL (8-252); Glucose 100 mg/dL (74-106); Potassium 4.3 mmol/L (3.5-5.1); Sodium 139 mmol/L (136-145); Total Protein 6.9 g/dL (6.4-8.2)
[2023-04-05 19:39] LABS: Vitamin D 25 Total 22.3 ng/mL (30-100)
[2023-04-09 12:41] LABS: Chlamydia Result Negative (Negative); GC Result Negative (Negative)
== END 2023-04-05 16:49 | disposition home or self-care (01) ==
LOC: NCHCN 16:48
PROVIDERS: PCP Internal Medicine; Visit Provider Physician Assistant
DX: Z12.4 Encounter for screening for malignant neoplasm of cervix (principal); Z01.419 Encounter for gynecological examination (general) (routine) without abnormal findings
CPT/HCPCS: 80053; 82306; 85027; 87491; 87591; 88142; 82728; 83540; 83550; 87624